=== PATIENT | female | born 1980 | race Caucasian/White ===

== ENCOUNTER 2016-11-15 11:10 | Observation (INO) | payer OTHER ==
[~2016-11-15] VITALS: Ht 152.4 cm; Wt 90.7 kg
[2016-11-15 11:52] VITALS: BP 112/65
[2016-11-15] MEDS ORDERED: PRENATAL LOW IR1 TA1 PO (11:54)
[2016-11-15 13:44] VITALS: BP 112/65
== END 2016-11-15 13:50 | disposition home or self-care (01) ==
LOC: MLD 11:10
PROVIDERS: ADMIT Obstetrics & Gynecology; ATTEND Obstetrics & Gynecology
DX: O26.892 Other specified pregnancy related conditions, second trimester (principal); R10.9 Unspecified abdominal pain; Z3A.23 23 weeks gestation of pregnancy
CPT/HCPCS: 76805; G0378; Q0092

== ENCOUNTER 2016-12-21 15:50 | Observation (INO) | payer OTHER ==
[~2016-12-21] VITALS: Ht 154.9 cm; Wt 96.2 kg
[~2016-12-21 15:50] MED LIST: PRENATAL LOW IR1 TA1 PO
[2016-12-21] MEDS ORDERED: FERROUS SULFAT325 MG PO (16:32)
[2016-12-21 16:38] VITALS: BP 118/81
== END 2016-12-21 17:45 | disposition home or self-care (01) ==
LOC: MLD 15:50
PROVIDERS: ADMIT Obstetrics & Gynecology; ATTEND Obstetrics & Gynecology
DX: O36.8130 Decreased fetal movements, third trimester, not applicable or unspecified (principal); Z3A.28 28 weeks gestation of pregnancy
CPT/HCPCS: 76805; G0378; Q0092

== ENCOUNTER 2017-02-02 09:44 | Observation (INO) | payer MEDICAID, OTHER ==
[~2017-02-02] VITALS: Ht 152.4 cm; Wt 90.7 kg
[~2017-02-02 09:44] MED LIST changes: +FERR325E14 PO; +PREN-380 PO; -PRENATAL LOW IR1 TA1 PO
[2017-02-02 10:09] VITALS: BP 120/75
[2017-02-02 12:03] LABS: APPEARANCE,URINE CLEAR (CLEAR); BILIRUBIN,URINE NEGATIVE (NEGATIVE); BLOOD, URINE 2+ (NEGATIVE); COLOR,URINE YELLOW (YELLOW); LEUKOCYTE ESTERASE ,URINE TRACE (NEGATIVE); NITRITE, URINE NEGATIVE (NEGATIVE); PROTEIN,URINE 1+ (NEGATIVE); UGLUCOSE NEGATIVE (NEGATIVE); UROBILINOGEN,URINE 0.2 EU/dL (0.2 - 1)
[2017-02-02 13:03] LABS: BACTERIA,URINE None Seen /HPF (None Seen); RBC,URINE 0-5 (RARE) /HPF (0-5); WBC,URINE 0-5 (RARE) /HPF (0-5)
[2017-02-02 13:04] LABS: SQUAMOUS EPITHELIAL CELL,UR 4-10 (MOD) /LPF (0-3 (FEW))
[2017-02-02] MEDS ORDERED: cefTRIAXone 1,000 MG in LIDOCAINE 1% 2.1 ML IM ONE ×3 (13:30)
== END 2017-02-02 15:30 | disposition home or self-care (01) ==
LOC: MLD 09:44
PROVIDERS: ADMIT Obstetrics & Gynecology; ATTEND Obstetrics & Gynecology
DX: O26.893 Other specified pregnancy related conditions, third trimester (principal); R10.9 Unspecified abdominal pain; Z3A.34 34 weeks gestation of pregnancy
CPT/HCPCS: 76805; 81001; 96372; G0378; J0696; J2001; Q0092